=== PATIENT | male | born 1955 | race Caucasian/White ===

== ENCOUNTER 2016-06-13 11:45 | Emergency (ER) | payer MEDICARE ==
[~2016-06-13] VITALS: Ht 172.7 cm; Wt 132.0 kg
[2016-06-13 11:47] VITALS: BP 140/75; PULSE 64; RESP 20; TEMP 97.8; O2SAT 98
--- NOTE | 2016-06-13 11:58 | PD ---
HPI Chief Complaint: Abnormal Results Time Seen by Provider: 11:58 Travel History International Travel<30 days: No Contact w/Intl Traveler<30days: No Traveled to known affect area: No History of Present Illness HPI 61-year-old male with history of A. fib, on Coumadin, currently vacationing here in [place], presents to emergency department with an order for INR to be drawn. Patient states he did not know where else to go. Does not know of any local outpatient labs. States that he feels great and just needs his lab work. PFSH Past Medical History Hx Anticoagulant Therapy: Yes Atrial Fibrillation: Yes Cardiovascular Problems: Yes Social History Alcohol Use: No Tobacco Use: No Substance Use: No Allergies-Medications (Allergen,Severity, Reaction): Coded Allergies: Plavix (Verified Allergy, Severe, Rash, 06/13/16) Reported Meds & Prescriptions Reported Meds & Active Scripts Active Reported Coumadin (Warfarin) 5 Mg Tab 5 Mg PO DAILY Review of Systems Except as stated in HPI: all other systems reviewed are Neg Physical Exam Narrative GENERAL: Well-nourished male patient, ambulatory in no acute distress SKIN: Warm and dry. HEAD: Atraumatic. Normocephalic. EYES: Pupils equal and round. No scleral icterus. No injection or drainage. ENT: No nasal bleeding or discharge. Mucous membranes pink and moist. NECK: Trachea midline. No JVD. CARDIOVASCULAR: Regular rate and rhythm. No murmur appreciated. RESPIRATORY: No accessory muscle use. Clear to auscultation. Breath sounds equal bilaterally. GASTROINTESTINAL: Abdomen soft, non-tender, nondistended. Hepatic and splenic margins not palpable. MUSCULOSKELETAL: No obvious deformities. No clubbing. No cyanosis. No edema. NEUROLOGICAL: Awake and alert. No obvious cranial nerve deficits. Motor grossly within normal limits. Normal speech. PSYCHIATRIC: Appropriate mood and affect; insight and judgment normal. Data Data Last Documented VS Vital Signs Date Time Temp Pulse Resp B/P Pulse Ox O2 Delivery O2 Flow Rate FiO2 06/13/16 12:58 87 20 135/68 99 06/13/16 11:47 97.8 Room Air Orders Prothrombin Time / Inr (Pt) (06/13/16 11:53) Labs Laboratory Tests Test 06/13/16 12:00 Prothrombin Time 27.0 SEC Prothromb Time International 2.4 RATIO Ratio MDM Medical Decision Making Medical Screen Exam Complete: Yes Emergency Medical Condition: Yes Medical Record Reviewed: Yes Differential Diagnosis Subtherapeutic INR versus therapeutic INR versus hypercoagulable state versus hypocoagulable state Narrative Course 61-year-old male presents to emergency department for his INR to be checked. Patient appears without distress. INR is drawn. Results 2.4. This is faxed to the patient's primary care provider by Carmen Murphy RN. Patient is discharged at this time. Diagnosis Primary Impression: Anticoagulation goal of INR 2 to 3 Referrals: Primary Care Physician Patient Instructions: General Instructions, Normal Exam (ED) Additional Instructions: Follow up with Primary care provider Return to ED with acute worsening of symptoms Med/Other Pt SpecificInfo: No Change to Meds Disposition: 01 DISCHARGE HOME Condition: Stable Dahiana Douglas Jun 13, 2016 11:58
[2016-06-13 12:40] LABS: INTERNATIONAL NORMALIZED RATIO 2.4 RATIO
[2016-06-13 12:58] VITALS: BP 135/68
[2016-06-13] MEDS ORDERED: COUM5TAB PO (13:00)
== END 2016-06-13 13:03 | disposition home or self-care (01) ==
LOC: NETRI 11:45
DX: I48.91 Unspecified atrial fibrillation (principal); Z79.01 Long term (current) use of anticoagulants
CPT/HCPCS: 85610; 99283

== ENCOUNTER 2016-08-11 19:51 | Inpatient (IN) | payer MEDICARE ==
[~2016-08-11 19:51] MED LIST: COUM5TAB PO
[2016-08-11 19:52] VITALS: BP 166/81; PULSE 112; RESP 18; TEMP 98; O2SAT 96
[2016-08-11] MEDS ORDERED: ATEN100T PO (20:07)
[2016-08-11 20:11] VITALS: RESP 18; O2SAT 97
[2016-08-11] MEDS ORDERED: DILTIAZEM INJ 125 MG in SODIUM CHLORIDE 0.9% INJ 100 ML IV SCH (20:15)
[2016-08-11] MEDS ORDERED: SODIUM CHLOR 0.9% 1000 ML INJ 1,000 ML IV SCH (20:15)
[2016-08-11 20:16] LABS: AUTOMATED NEUTROPHIL # 6.1 TH/MM3 (1.8-7.7); BASOPHIL # 0.1 TH/MM3 (0-0.2); BASOPHIL % 0.7 % (0.0-2.0); EOSINOPHIL # 0.3 TH/MM3 (0-0.4); EOSINOPHIL % 2.9 % (0.0-4.0); HEMATOCRIT 38.7 % (39.0-51.0); HEMO FLAGS DIFF FINAL; LYMPH % 32.2 % (9.0-44.0); LYMPHOCYTE # 3.7 TH/MM3 (1.0-4.8); MEAN CELL VOLUME 85.7 FL (80.0-100.0); MEAN CORPUSCULAR HGB CONC 33.8 % (32.0-36.0); MONO % 11.1 % (0.0-8.0); NEUT % 53.1 % (16.0-70.0); PLATELET COUNT 250 TH/MM3 (150-450); RED BLOOD COUNT 4.51 MIL/MM3 (4.50-5.90); RED CELL DISTRIBUTION WIDTH 14.6 % (11.6-17.2); WHITE BLOOD COUNT 11.4 TH/MM3 (4.0-11.0)
--- NOTE | 2016-08-11 20:23 | PD ---
HPI Chief Complaint: Cardiac Complaint Time Seen by Provider: 20:00 Travel History International Travel<30 days: No Contact w/Intl Traveler<30days: No Traveled to known affect area: No History of Present Illness HPI 61-year-old male complains of palpitation and discharge from his AICD. Patient has history hypertension, diabetes, dyslipidemia. Patient has history of arrhythmia and on Coumadin and has AICD in place. Patient does not know what type of arrhythmia that he has. Patient has physician from outside the state. Patient does not have a local physician. Patient is on atenolol, Lexapro, potassium, Lasix, Lipitor, Pepcid, Coumadin and metformin. Patient states that his AICD discharged 10 times for the past 2 hours. Patient started having palpitation this evening and started having AICD discharge several time. EMS was called. Patient was found to be in atrial fibrillation with RVR. AICD with discharge 4 times during the time EMS was there. Patient was running between atrial fibrillation with RVR, short run of SVT and short runs of V. tach. The AICD was noted to be discharged during V. tach. Patient denies any chest pain or shortness of breath. Patient was given Cardizem 20 mg IV and lidocaine [address] to the ED. PFSH Past Medical History Hx Anticoagulant Therapy: Yes Atrial Fibrillation: Yes Cardiovascular Problems: Yes Social History Alcohol Use: No Tobacco Use: No Substance Use: No Allergies-Medications (Allergen,Severity, Reaction): Coded Allergies: Plavix (Verified Allergy, Severe, Rash, 06/13/16) Lisinopril (Verified Allergy, Intermediate, 08/11/16) Niacin (Verified Allergy, Intermediate, 08/11/16) Reported Meds & Prescriptions Reported Meds & Active Scripts Active Reported Metformin (Metformin HCl) 500 Mg Tab 500 Mg PO BIDPC With meals Atenolol 100 Mg Tab 100 Mg PO DAILY Coumadin (Warfarin) 5 Mg Tab 5 Mg PO DAILY Review of Systems General / Constitutional: No: Fever Eyes: No: Visual changes HENT: No: Headaches Cardiovascular: Positive: Palpitations, No: Chest Pain or Discomfort Respiratory: No: Shortness of Breath Gastrointestinal: No: Abdominal Pain Genitourinary: No: Dysuria Musculoskeletal: No: Pain Skin: No Rash Neurologic: No: Weakness Psychiatric: No: Depression Endocrine: No: Polydipsia Hematologic/Lymphatic: No: Easy Bruising Physical Exam Narrative GENERAL: Well-nourished, well-developed patient. SKIN: Warm and dry. HEAD: Normocephalic. EYES: No scleral icterus. No injection or drainage. NECK: Supple, trachea midline. No JVD or lymphadenopathy. CARDIOVASCULAR: Mild tachycardia rate and rhythm without murmurs, gallops, or rubs. RESPIRATORY: Breath sounds equal bilaterally. No accessory muscle use. GASTROINTESTINAL: Abdomen soft, non-tender, nondistended. MUSCULOSKELETAL: No cyanosis, or edema. BACK: Nontender without obvious deformity. No CVA tenderness. Neurologic exam normal. Data Data Last Documented VS Vital Signs Date Time Temp Pulse Resp B/P Pulse Ox O2 Delivery O2 Flow Rate FiO2 08/11/16 21:18 103 18 142/66 99 Nasal Cannula 2 08/11/16 19:52 98.0 Orders Electrocardiogram (08/11/16 20:01) Complete Blood Count With Diff (08/11/16 20:01) Comprehensive Metabolic Panel (08/11/16 20:01) Creatine Kinase (Cpk) (08/11/16 20:01) Troponin I (08/11/16 20:01) B-Type Natriuretic Peptide (08/11/16 20:01) Prothrombin Time / Inr (Pt) (08/11/16 20:01) Act Partial Throm Time (Ptt) (08/11/16 20:01) Thyroid Stimulating Hormone (08/11/16 20:01) Chest, Single Ap (08/11/16 20:01) Iv Access Insert/Monitor (08/11/16 20:01) Ecg Monitoring (08/11/16 20:01) Oximetry (08/11/16 20:01) Sodium Chlor 0.9% 1000 Ml Inj (Ns 1000 M (08/11/16 20:15) Diltiazem Inj (Cardizem Inj) (08/11/16 20:15) Echo 2d Comp W/Dopp(Routine) (08/12/16 09:00) Consult Cardiology (08/11/16 ) Admit Order (Ed Use Only) (08/11/16 21:27) Potassium Chlor 20 Meq Premix (Kcl 20 Me (08/11/16 21:30) Potassium Chloride (Kcl) (08/11/16 21:30) Labs Laboratory Tests Test 08/11/16 20:00 White Blood Count 11.4 TH/MM3 Red Blood Count 4.51 MIL/MM3 Hemoglobin 13.1 GM/DL Hematocrit 38.7 % Mean Corpuscular Volume 85.7 FL Mean Corpuscular Hemoglobin 29.0 PG Mean Corpuscular Hemoglobin 33.8 % Concent Red Cell Distribution Width 14.6 % Platelet Count 250 TH/MM3 Mean Platelet Volume 8.6 FL Neutrophils (%) (Auto) 53.1 % Lymphocytes (%) (Auto) 32.2 % Monocytes (%) (Auto) 11.1 % Eosinophils (%) (Auto) 2.9 % Basophils (%) (Auto) 0.7 % Neutrophils # (Auto) 6.1 TH/MM3 Lymphocytes # (Auto) 3.7 TH/MM3 Monocytes # (Auto) 1.3 TH/MM3 Eosinophils # (Auto) 0.3 TH/MM3 Basophils # (Auto) 0.1 TH/MM3 CBC Comment DIFF FINAL Differential Comment Prothrombin Time 30.8 SEC Prothromb Time International 2.7 RATIO Ratio Activated Partial 37.1 SEC Thromboplast Time Sodium Level 139 MEQ/L Potassium Level 3.0 MEQ/L Chloride Level 102 MEQ/L Carbon Dioxide Level 26.5 MEQ/L Anion Gap 11 MEQ/L Blood Urea Nitrogen 12 MG/DL Creatinine 1.13 MG/DL Estimat Glomerular Filtration 66 ML/MIN Rate Random Glucose 113 MG/DL Calcium Level 8.4 MG/DL Total Bilirubin 0.4 MG/DL Aspartate Amino Transf 51 U/L (AST/SGOT) Alanine Aminotransferase 60 U/L (ALT/SGPT) Alkaline Phosphatase 79 U/L Total Creatine Kinase 173 U/L Troponin I 0.31 NG/ML B-Type Natriuretic Peptide 23 PG/ML Total Protein 7.6 GM/DL Albumin 3.2 GM/DL Thyroid Stimulating Hormone 1.560 uIU/ML [address] [place] [address] Medical Decision Making Medical Screen Exam Complete: Yes Emergency Medical Condition: Yes Interpretation(s) 21:20 PM. EKG shows sinus tachycardia rate 108 with occasional PVCs. Nonspecific ST-T wave change. Chest x-ray shows no acute consolidation. CBC within normal limit. Potassium 3.0. Calcium 8.4. Troponin 0.31. INR 2.7. Differential Diagnosis Differential diagnosis including atrial fibrillation with RVR, ventricular tachycardia, SVT. Narrative Course 61-year-old male with history of arrhythmia and has AICD placement. A[employer] company [employer]. the patient was given Cardizem and lidocaine 1 mg IV bolus prior to arrival. Cardizem drip started. Dr. Carvajal coin machine collector was consulted. [employer] reps will be consulted for interrogation of the AICD. KCl 40 mEq by mouth given. KCl 20 mEq IV given. Diagnosis Primary Impression: Atrial fibrillation with RVR Additional Impressions: AICD discharge Elevated troponin Hypokalemia Darwin Delacruz MD Aug 11, 2016 20:23
[2016-08-11 20:27] LABS: APTT (PATIENT) 37.1 SEC (24.3-30.1); INTERNATIONAL NORMALIZED RATIO 2.7 RATIO; PROTHROMBIN TIME - PATIENT 30.8 SEC (9.8-11.6)
--- NOTE | 2016-08-11 20:30 | RADRPT ---
EXAM DATE/TIME: 08/11/2016 20:19 [facility] COMPARISON: No previous studies available for comparison. INDICATIONS : Palpitations. Patient states their d-fib went off tonight. MEDICAL HISTORY : None. SURGICAL HISTORY : D-fib. ENCOUNTER: Initial ACUITY: 1 day PAIN SCORE: 0/10 LOCATION: chest FINDINGS: Pacer lead overlies right ventricle. Heart size within normal limits. Minimal basal atelectasis. No f ocal consolidation or effusion. No pneumothorax. CONCLUSION: 1. Minimal basal atelectasis. No focal consolidation or effusion. No pneumothorax. Brandon Matias MD on August 11, 2016 at 20:29 Board Certified Radiologist. This report was verified electronically.
[2016-08-11] MEDS ORDERED: METF500T PO (20:31)
[2016-08-11 20:39] VITALS: BP 157/70; PULSE 103; RESP 18; O2SAT 97
[2016-08-11 20:43] LABS: ANION GAP 11 MEQ/L (5-15); AST (GOT) 51 U/L (15-37); BICARBONATE 26.5 MEQ/L (21.0-32.0); BLOOD UREA NITROGEN 12 MG/DL (7-18); CHLORIDE 102 MEQ/L (98-107); GLOMERULAR FILTRATION RATE 66 ML/MIN (>89); SODIUM (NA) 139 MEQ/L (136-145)
[2016-08-11 20:56] LABS: ALKALINE PHOSPHATASE 79 U/L (45-117); ALT (GPT) 60 U/L (12-78); CREATINE KINASE 173 U/L (39-308); TOTAL BILIRUBIN ADULT 0.4 MG/DL (0.2-1.0)
--- NOTE | 2016-08-11 21:16 | MB ---
cc: SOLANGE CARVAJAL MD DATE OF CONSULTATION 08/11/16 HISTORY OF PRESENT ILLNESS Mr. Domingo is a 61 year old white male with a history of ventricular arrhythmias and ICD placement 12 years ago. He has had his [employer] ICD changed once. He presented with fast arrhythmias that were diagnosed as atrial fibrillation with rapid ventricular response and ventricular tachycardia resulting in four shocks. The patient states that he had 10 shocks in two hours. He has not had any angina or heart failure symptoms. He was given IV Diltiazem and also Lidocaine. He is currently in sinus tachycardia. PAST MEDICAL HISTORY 1. Atrial fibrillation 2. Ventricular arrhythmias. 3. [employer] ICD placement. 4. History of hypertension No history of coronary artery disease or cerebrovascular accident. MEDICATIONS 1. Atenolol 100 mg a day 2. Metformin 3. Left-sided ALLERGIES PLAVIX SOCIAL HISTORY The patient does not smoke. He does not drink alcohol. He is visiting from [place]. FAMILY HISTORY Negative for heart disease. REVIEW OF SYSTEMS Otherwise negative. PHYSICAL EXAMINATION VITAL SIGNS: Blood pressure 166/81, pulse 105 and regular. HEENT: Negative, 2+ carotid upstrokes, no bruits. LUNGS: Clear. HEART: Regular with no murmurs, rubs or gallops ABDOMEN: Soft, no bruits. EXTREMITIES: Without edema, 2+ distal pulses. NEUROLOGIC: Grossly intact. There is healed site at the left upper chest with stable defibrillator pocket. CARDIOLOGY STUDIES Electrocardiogram was reviewed and showed mild sinus tachycardia, normal axis and intervals, nonspecific ST-T changes. LABORATORY DATA Hemoglobin 13.1. The rest of the labs are pending. DIAGNOSES 1. ICD shock. 2. Atrial fibrillation with rapid ventricular response 3. Wide complex tachycardia 4. Status post [employer] ICD placement DISPOSITION Mr. Domingo will continue his current program with atenolol. We will continue IV Diltiazem in the meantime. We may increase the dose of beta andreas or calcium channel andreas if necessary. He will be admitted to the Intensive Care Unit. We will obtain echocardiograms tomorrow to evaluate his left ventricular function. We will have his ICD interrogated tonight. I will follow him for cardiology during his hospitalization. Solange Carvajal MD [place]/ /8:37 PM /9:06 PM DANITZA
[2016-08-11 21:18] VITALS: BP 142/66; PULSE 103; RESP 18; O2SAT 99
[2016-08-11] MEDS ORDERED: POTASSIUM CHLOR 20 MEQ PREMIX 100 ML IV ONE (21:30)
[2016-08-11] MEDS ORDERED: POTASSIUM CHLORIDE 20 MEQ CONTROLLED RELEASE TAB PO ONE (21:30)
[2016-08-11] MEDS ORDERED: CHLORHEXIDINE GLUCONATE 2 % 1 PACK (2 CLOTHS) TOP PRN (22:00)
[2016-08-11] MEDS ORDERED: HEPARIN SODIUM - SQ 10,000 UNITS/ML VIAL SQ SCH (22:00)
[2016-08-11] MEDS ORDERED: ACETAMINOPHEN 325 MG TAB PO PRN (22:00)
[2016-08-11] MEDS ORDERED: RESP: ALBUTEROL 2.5 MG/IPRATROPIUM 0.5 MG NEB (PRN) INH (22:00)
[2016-08-11] MEDS ORDERED: SODIUM CHLORIDE 0.9% FLUSH 10 ML FLUSH PRN (22:00)
[2016-08-11] MEDS ORDERED: oxyCODONE/ACETAMINOPHEN 5 MG/325 MG TAB PO PRN (22:00)
[2016-08-11] MEDS ORDERED: ZOLPIDEM TARTRATE 5 MG TAB PO PRN (22:00)
[2016-08-11] MEDS ORDERED: MORPHINE SULFATE 4 MG/ML INJ IV PRN (22:00)
[2016-08-11] MEDS ORDERED: MISCELLANEOUS NURSING INFORMATION XX SCH (22:00)
[2016-08-11] MEDS ORDERED: LIPI40TA PO (22:03)
[2016-08-11] MEDS ORDERED: POTA10TA2 PO (22:03)
[2016-08-11] MEDS ORDERED: FURO1TAB60 PO (22:03)
[2016-08-11] MEDS ORDERED: LEXA10TA PO (22:03)
--- NOTE | 2016-08-11 22:18 | HHI.HP ---
HPI Service Critical Care Medicine Primary Care Physician Non-Staff Admission Diagnosis atrial fibrillation with RVR. AICD discharge. Elevated troponin. Diagnosis: Travel History International Travel<30 Days: No Contact w/Intl Traveler <30 Da: No Traveled to Known Affected Are: No History of Present Illness 61-year-old male with history of atrial fibrillation ventricular arrhythmia status post ICD placement ([employer]) complains of palpitation and multiple discharges from his ICD. Patient has also history hypertension, diabetes, dyslipidemia. Patient chronically anticoagulated due to atrial fibrillation and ventricular arrhythmias. Patient states that his AICD discharged 10 times for the past 2 hours. Patient denies any chest pain or shortness of breath. Patient was given Cardizem 20 mg IV and lidocaine [address] to the ED. he was evaluated by ornamental machine operator in emergency department and his heart rate is currently well controlled. Review of Systems Constitutional: DENIES: Diaphoretic episodes, Fatigue, Fever, Weight gain, Weight loss, Chills, Dizziness, Change in appetite, Night Sweats Endocrine: DENIES: Heat/cold intolerance, Polydipsia, Polyuria, Polyphagia Eyes: DENIES: Blurred vision, Diplopia, Eye inflammation, Eye pain, Vision loss , Photosensitivity, Double Vision Ears, nose, mouth, throat: DENIES: Tinnitus, Hearing loss, Vertigo, Nasal discharge, Oral lesions, Throat pain, Hoarseness, Ear Pain, Running Nose, Epistaxis, Sinus Pain, Toothache, Odynophagia Respiratory: DENIES: Apneas, Cough, Snoring, Wheezing, Hemoptysis, Sputum production, Shortness of breath Cardiovascular: DENIES: Chest pain, Palpitations, Syncope, Dyspnea on Exertion , PND, Lower Extremity Edema, Orthopnea, Claudication Gastrointestinal: DENIES: Abdominal pain, Black stools, Bloody stools, Constipation, Diarrhea, Nausea, Vomiting, Difficulty Swallowing, Anorexia Genitourinary: DENIES: Sexual dysfunction, Urinary frequency, Urinary incontinence, Urgency, Hematuria, Dysuria, Nocturia, Penile Discharge, Testicular Pain, Testicular Swelling Musculoskeletal: DENIES: Joint pain, Muscle aches, Stiffness, Joint Swelling, Back pain, Neck pain Integumentary: DENIES: Abnormal pigmentation, Nail changes, Pruritus, Rash Hematologic/lymphatic: DENIES: Bruising, Lymphadenopathy Neurologic: DENIES: Abnormal gait, Headache, Localized weakness, Paresthesias, Seizures, Speech Problems, Tremor, Poor Balance Psychiatric: DENIES: Anxiety, Confusion, Mood changes, Depression, Hallucinations, Agitation, Suicidal Ideation, Homicidal Ideation, Delusions Past Family Social History Allergies: Coded Allergies: Plavix (Verified Allergy, Severe, Rash, 06/13/16) Lisinopril (Verified Allergy, Intermediate, 08/11/16) Niacin (Verified Allergy, Intermediate, 08/11/16) Past Medical History Atrial fibrillation Ventricular arrhythmias [employer] ICD in place Hypertension Diabetes mellitus Chronic anticoagulation Past Surgical History ICD placement Reported Medications Reported Meds & Active Scripts Active Reported Lipitor (Atorvastatin Calcium) 40 Mg Tab 40 Mg PO HS Lasix (Furosemide) 40 Mg Tab 40 Mg PO BID Potassium Chloride ER (Potassium Chloride) 10 Meq Tab 10 Meq PO DAILY Lexapro (Escitalopram Oxalate) 10 Mg Tab 10 Mg PO DAILY Metformin (Metformin HCl) 500 Mg Tab 500 Mg PO BIDPC With meals Atenolol 100 Mg Tab 100 Mg PO DAILY Coumadin (Warfarin) 5 Mg Tab 5 Mg PO DAILY Active Ordered Medications Current Medications Medications (Trade) Dose Ordered Sig/Maggy Route PRN Reason Start Time Stop Time Status Last Admin Dose Admin Diltiazem HCl 125 mg/Sodium Chloride 125 ml @ 0 mls/hr TITRATE IV 08/11/16 20:15 08/11/16 20:49 Sodium Chloride (NS 1000 ml Inj) 1,000 ml @ 84 mls/hr [id number] IV 08/11/16 22:00 08/11/16 22:41 Sodium Chloride (NS Flush) 2 ml UNSCH PRN .XX FLUSH AFTER USING IV ACCESS 08/11/16 22:00 Sodium Chloride (NS Flush) 2 ml BID .XX 08/12/16 09:00 Acetaminophen (Tylenol) 650 mg Q6H PRN PO FEVER >101F 08/11/16 22:00 Oxycodone/ Acetaminophen (Percocet 5-325 Mg) 1 tab Q4H PRN PO PAIN SCALE 1 TO 5 08/11/16 22:00 Morphine Sulfate (Morphine Inj) 2 mg Q2H PRN IV SEE LABEL COMMENTS 08/11/16 22:00 Docusate Sodium (Colace) 100 mg BID PO 08/12/16 09:00 Zolpidem Tartrate (Ambien) 5 mg HS PRN PO INSOMNIA 08/11/16 22:00 Miscellaneous Information 1 [id number] XX 08/11/16 22:00 Chlorhexidine Gluconate (Chlorhexidine 2% Cloth) 3 pack Taper DAILY@04 TOP 08/12/16 04:00 08/08/17 03:59 Chlorhexidine Gluconate (Chlorhexidine 2% Cloth) 3 pack UNSCH PRN TOP HYGIENIC CARE 08/11/16 22:00 Atenolol (Tenormin) 100 mg DAILY PO 08/12/16 09:00 Atorvastatin Calcium (Lipitor) 40 mg HS PO 08/12/16 21:00 Escitalopram Oxalate (Lexapro) 10 mg DAILY PO 08/12/16 09:00 Furosemide (Lasix) 40 mg BID@18 PO 08/12/16 09:00 Potassium Chloride (KCl) 10 meq DAILY PO 08/12/16 09:00 Warfarin Sodium (Coumadin) 5 mg DAILY@16 PO 08/12/16 16:00 Dextrose (D50w (Vial) Inj) 25 ml UNSCH PRN IV PUSH HYPOGLYCEMIA-SEE COMMENTS 08/11/16 22:45 Glucagon 1 mg 1 mg UNSCH PRN OTHER HYPOGLYCEMIA-SEE COMMENTS 08/11/16 22:45 Potassium Chloride 100 ml @ 50 mls/hr Q2H PRN IV For Potassium 2.8 - 3.2 mEq/L 08/11/16 22:45 Potassium Chloride 100 ml @ 50 mls/hr Q2H PRN IV For Potassium 2.8 - 3.2 mEq/L 08/11/16 22:45 Potassium Chloride 100 ml @ 25 mls/hr UNSCH PRN IV For Potassium 3.3 - 3.5 mEq/L 08/11/16 22:45 Potassium Chloride 100 ml @ 50 mls/hr Q2H PRN IV For Potassium 3.3 - 3.5 mEq/L 08/11/16 22:45 Magnesium Sulfate/ Sodium Chloride (Magnesium Sulfate Inj/NS Inj) 100 ml @ 50 mls/hr UNSCH PRN IV For Magnesium 0.9 - 1.1 mg/dL 08/11/16 22:45 Magnesium Oxide 800 mg 800 mg UNSCH PRN PO For Magnesium 1.2 - 1.6 mg/dL 08/11/16 22:45 Magnesium Sulfate/ Sodium Chloride (Magnesium Sulfate Inj/NS Inj) 100 ml @ 50 mls/hr UNSCH PRN IV For Magnesium 1.2 - 1.6 mg/dL 08/11/16 22:45 Potassium Phosphate 2000 mg 2,000 mg Q4H PRN PO For Phosphorus < 2.5 mg/dL 08/11/16 22:45 Sodium Phosphate/ Sodium Chloride (Sodium Phosphate Inj/NS 250 ml Inj) 250 ml @ 42 mls/hr UNSCH PRN IV For Phosphorus < 2.5 mg/dL 08/11/16 22:45 Potassium Phosphate 2000 mg 2,000 mg UNSCH PRN PO/TUBE SEE LABEL COMMENTS 08/11/16 22:45 Potassium Phosphate/Sodium Chloride (Potassium Phosphate Inj/NS 250 ml Inj) 260 ml @ 42 mls/hr UNSCH PRN IV SEE LABEL COMMENTS 08/11/16 22:45 Family History Noncontributory Social History Negative Physical Exam Vital Signs Vital Signs Date Time Temp Pulse Resp B/P Pulse Ox O2 Delivery O2 Flow Rate FiO2 08/11/16 21:18 103 18 142/66 99 Nasal Cannula 2 08/11/16 20:39 103 18 157/70 97 Nasal Cannula 2 08/11/16 20:11 18 97 Nasal Cannula 08/11/16 20:00 115 18 Nasal Cannula 3 08/11/16 19:52 98.0 112 18 166/81 96 Physical Exam GENERAL: Morbidly obese middle-aged male in no acute distress. SKIN: Warm and dry. HEAD: Normocephalic. EYES: No scleral icterus. No injection or drainage. NECK: Supple, trachea midline. No JVD or lymphadenopathy. CARDIOVASCULAR: Regular rate and rhythm without murmurs, gallops, or rubs. RESPIRATORY: Breath sounds equal bilaterally. No accessory muscle use. GASTROINTESTINAL: Abdomen soft, non-tender, nondistended. MUSCULOSKELETAL: No cyanosis, or edema. BACK: Nontender without obvious deformity. No CVA tenderness. EXTREMITIES: No clubbing cyanosis or edema Laboratory Laboratory Tests Test 08/11/16 20:00 White Blood Count 11.4 Red Blood Count 4.51 Hemoglobin 13.1 Hematocrit 38.7 Mean Corpuscular Volume 85.7 Mean Corpuscular Hemoglobin 29.0 Mean Corpuscular Hemoglobin 33.8 Concent Red Cell Distribution Width 14.6 Platelet Count 250 Mean Platelet Volume 8.6 Neutrophils (%) (Auto) 53.1 Lymphocytes (%) (Auto) 32.2 Monocytes (%) (Auto) 11.1 Eosinophils (%) (Auto) 2.9 Basophils (%) (Auto) 0.7 Neutrophils # (Auto) 6.1 Lymphocytes # (Auto) 3.7 Monocytes # (Auto) 1.3 Eosinophils # (Auto) 0.3 Basophils # (Auto) 0.1 CBC Comment DIFF FINAL Differential Comment Prothrombin Time 30.8 Prothromb Time International 2.7 Ratio Activated Partial 37.1 Thromboplast Time Sodium Level 139 Potassium Level 3.0 Chloride Level 102 Carbon Dioxide Level 26.5 Anion Gap 11 Blood Urea Nitrogen 12 Creatinine 1.13 Estimat Glomerular Filtration 66 Rate Random Glucose 113 Calcium Level 8.4 Total Bilirubin 0.4 Aspartate Amino Transf 51 (AST/SGOT) Alanine Aminotransferase 60 (ALT/SGPT) Alkaline Phosphatase 79 Total Creatine Kinase 173 Troponin I 0.31 B-Type Natriuretic Peptide 23 Total Protein 7.6 Albumin 3.2 Thyroid Stimulating Hormone 1.560 3rd Gen Result Diagram: 08/11/16199908/11/161999 Imaging Last 24 hours Impressions Chest X-Ray 08/11/162000 Signed Impressions: Service Date/Time: Thursday, August 11, 2016 20:19 - CONCLUSION: 1. Minimal basal atelectasis. No focal consolidation or effusion. No pneumothorax. Brandon Matias MD Assessment and Plan Problem List: (1) Anticoagulation goal of INR 2 to 3 ICD Code: Z51.81 Status: Acute (2) Atrial fibrillation with RVR ICD Code: I48.91 Status: Acute (3) AICD discharge ICD Code: Z45.02 Status: Acute (4) Hypokalemia ICD Code: E87.6 Status: Acute (5) Elevated troponin ICD Code: R74.8 Status: Acute Assessment and Plan Arrhythmias - Multiple discharges from ICD - Interrogated the device - Management per cardiology - Continue atenolol and calcium channel andreas - Telemetry monitoring in the ICU Diabetes - Hold metformin while in the ICU - Insulin sliding scale Hypertension - Continue atenolol Chronic atrial fibrillation - Rate controlled - Continue beta andreas - Continue Coumadin Hypokalemia - Replacement per ICU routine DVT GI prophylaxis - Coumadin 1999 ADA diet Critical Care: The total critical care time was 35 minutes. Time to perform other separately billable procedures was not included in the critical care time. Adelfo Dahl MD Aug 11, 2016 22:18
[2016-08-11 22:31] VITALS: BP 144/74; PULSE 98; RESP 18; O2SAT 98
[2016-08-11] MEDS: SODIUM CHLOR 0.9% 1000 ML INJ 1,000 ML IV SCH (22:41)
[2016-08-11] MEDS ORDERED: MAGNESIUM SULFATE INJ 4 GM in SODIUM CHLORIDE 0.9% INJ 92 ML IV PRN (22:45)
[2016-08-11] MEDS ORDERED: MAGNESIUM OXIDE 400 MG TAB PO PRN (22:45)
[2016-08-11] MEDS ORDERED: POTASSIUM PHOSPHATE MONOBASIC 500 MG TAB PO/TUBE PRN (22:45)
[2016-08-11] MEDS ORDERED: SODIUM PHOSPHATE INJ 30 MMOL in SODIUM CHLOR 0.9% 250 ML INJ 240 ML IV PRN (22:45)
[2016-08-11] MEDS ORDERED: DEXTROSE 50% IN WATER 50 ML VIAL(D50) IV PUSH PRN (22:45)
[2016-08-11] MEDS ORDERED: MAGNESIUM SULFATE INJ 2 GM in SODIUM CHLORIDE 0.9% INJ 96 ML IV PRN (22:45)
[2016-08-11] MEDS ORDERED: POTASSIUM CHLOR 40 MEQ PREMIX 100 ML IV PRN ×2 (22:45)
[2016-08-11] MEDS ORDERED: GLUCAGON 1 MG/ML VIAL OTHER PRN (22:45)
[2016-08-11] MEDS ORDERED: POTASSIUM PHOSPHATE MONOBASIC 500 MG TAB PO PRN (22:45)
[2016-08-11] MEDS ORDERED: POTASSIUM PHOSPHATE INJ 30 MMOL in SODIUM CHLOR 0.9% 250 ML INJ 250 ML IV PRN (22:45)
[2016-08-11] MEDS ORDERED: POTASSIUM CHLOR 20 MEQ PREMIX 100 ML IV PRN ×2 (22:45)
[2016-08-12] VITALS (12 sets, daily range): BP systolic 109–139; BP diastolic 60–76; PULSE 64–88; RESP 15–38; TEMP 97.9–98.5; O2SAT 93–96
[2016-08-12] MEDS: CHLORHEXIDINE GLUCONATE 2 % 1 PACK (2 CLOTHS) TOP SCH (04:00)
[2016-08-12 04:11] LABS: ANION GAP 9 MEQ/L (5-15); AST (GOT) 50 U/L (15-37); BICARBONATE 27.4 MEQ/L (21.0-32.0); BLOOD UREA NITROGEN 11 MG/DL (7-18); CHLORIDE 105 MEQ/L (98-107); GLOMERULAR FILTRATION RATE 87 ML/MIN (>89); MAGNESIUM 1.8 MG/DL (1.5-2.5); POTASSIUM 3.8 MEQ/L (3.5-5.1); SODIUM (NA) 141 MEQ/L (136-145)
[2016-08-12 04:13] LABS: AUTOMATED NEUTROPHIL # 5.2 TH/MM3 (1.8-7.7); BASOPHIL % 0.5 % (0.0-2.0); EOSINOPHIL # 0.1 TH/MM3 (0-0.4); EOSINOPHIL % 1.8 % (0.0-4.0); HEMATOCRIT 37.9 % (39.0-51.0); HEMO FLAGS DIFF FINAL; LYMPH % 25.4 % (9.0-44.0); MEAN CELL VOLUME 87.8 FL (80.0-100.0); MEAN CORPUSCULAR HEMOGLOBIN 29.2 PG (27.0-34.0); MEAN CORPUSCULAR HGB CONC 33.2 % (32.0-36.0); MONO % 7.4 % (0.0-8.0); NEUT % 64.9 % (16.0-70.0); PLATELET COUNT 212 TH/MM3 (150-450); RED BLOOD COUNT 4.32 MIL/MM3 (4.50-5.90); RED CELL DISTRIBUTION WIDTH 14.8 % (11.6-17.2)
[2016-08-12 04:14] LABS: ALKALINE PHOSPHATASE 72 U/L (45-117); ALT (GPT) 54 U/L (12-78); TOTAL BILIRUBIN ADULT 0.5 MG/DL (0.2-1.0)
[2016-08-12 04:23] LABS: INTERNATIONAL NORMALIZED RATIO 2.3 RATIO; PROTHROMBIN TIME - PATIENT 26.8 SEC (9.8-11.6)
[2016-08-12] MEDS: INSULIN ASPART SUPPLEMENTAL SCALE SQ SCH ×4 (07:00→21:00)
[2016-08-12] MEDS ORDERED: ATENOLOL 100 MG TAB PO SCH (09:00)
[2016-08-12] MEDS: SODIUM CHLORIDE 0.9% FLUSH 10 ML FLUSH SCH ×2 (09:00→21:00)
[2016-08-12] MEDS: DOCUSATE SODIUM 100 MG CAP PO SCH ×2 (09:24→21:00)
[2016-08-12] MEDS: ESCITALOPRAM OXALATE 10 MG TAB PO SCH (09:24)
[2016-08-12] MEDS: POTASSIUM CHLORIDE 10 MEQ CONTROLLED RELEASE TAB PO SCH (09:25)
[2016-08-12] MEDS: FUROSEMIDE 40 MG TAB PO SCH ×2 (09:25→20:02)
[2016-08-12] MEDS: SODIUM CHLOR 0.9% 1000 ML INJ 1,000 ML IV SCH ×2 (09:55→21:50)
--- NOTE | 2016-08-12 14:52 | EKG ---
Date Performed: 08/11/2016 Time Performed: 19:57:01 PTAGE: 61 years EKG: SINUS TACHYCARDIA WITH OCCASIONAL VENTRICULAR PREMATURE COMPLEXES LOW QRS VOLTAGE IN PRECOR DIAL LEADS NONSPECIFIC ST & T-WAVE ABNORMALITY ABNORMAL RHYTHM ECG NO PREVIOUS TRACING DOCTOR: Tommy Devine Interpretating Date/Time 08/12/2016 14:47:48
--- NOTE | 2016-08-12 17:57 | PD.CARD.PN ---
Subjective Subjective Remarks No CP or SOB, no recurrent AF Objective Medications Current Medications Medications (Trade) Dose Ordered Sig/Maggy Route Start Time Stop Time Status Last Admin (NS 1000 ml Inj) 1,000 ml @ 84 mls/hr [id number] IV 08/11/16 22:00 08/11/16 22:41 (NS Flush) 2 ml UNSCH PRN .XX 08/11/16 22:00 (NS Flush) 2 ml BID .XX 08/12/16 09:00 (Tylenol) 650 mg Q6H PRN PO 08/11/16 22:00 (Percocet 5-325 Mg) 1 tab Q4H PRN PO 08/11/16 22:00 (Morphine Inj) 2 mg Q2H PRN IV 08/11/16 22:00 (Colace) 100 mg BID PO 08/12/16 09:00 08/12/16 09:24 (Ambien) 5 mg HS PRN PO 08/11/16 22:00 Miscellaneous Information 1 Q361D XX 08/11/16 22:00 (Chlorhexidine 2% Cloth) 3 pack Taper DAILY@04 TOP 08/12/16 04:00 08/08/17 03:59 08/12/16 04:00 (Chlorhexidine 2% Cloth) 3 pack UNSCH PRN TOP 08/11/16 22:00 (Lipitor) 40 mg HS PO 08/12/16 21:00 (Lexapro) 10 mg DAILY PO 08/12/16 09:00 08/12/16 09:24 (Lasix) 40 mg BID@09,18 PO 08/12/16 09:00 08/12/16 09:25 (KCl) 10 meq DAILY PO 08/12/16 09:00 08/12/16 09:25 (Coumadin) 5 mg DAILY@16 PO 08/12/16 16:00 (D50w (Vial) Inj) 25 ml UNSCH PRN IV PUSH 08/11/16 22:45 Glucagon 1 mg 1 mg UNSCH PRN OTHER 08/11/16 22:45 Potassium Chloride 100 ml @ 50 mls/hr Q2H PRN IV 08/11/16 22:45 Potassium Chloride 100 ml @ 50 mls/hr Q2H PRN IV 08/11/16 22:45 Potassium Chloride 100 ml @ 25 mls/hr UNSCH PRN IV 3/25/17 22:45 Potassium Chloride 100 ml @ 50 mls/hr Q2H PRN IV 08/11/16 22:45 (Magnesium Sulfate Inj/NS Inj) 100 ml @ 50 mls/hr UNSCH PRN IV 08/11/16 22:45 Magnesium Oxide 800 mg 800 mg UNSCH PRN PO 08/11/16 22:45 (Magnesium Sulfate Inj/NS Inj) 100 ml @ 50 mls/hr UNSCH PRN IV 08/11/16 22:45 Potassium Phosphate 2000 mg 2,000 mg Q4H PRN PO 08/11/16 22:45 (Sodium Phosphate Inj/NS 250 ml Inj) 250 ml @ 42 mls/hr UNSCH PRN IV 08/11/16 22:45 Potassium Phosphate 2000 mg 2,000 mg UNSCH PRN PO/TUBE 08/11/16 22:45 (Potassium Phosphate Inj/NS 250 ml Inj) 260 ml @ 42 mls/hr UNSCH PRN IV 08/11/16 22:45 (Tenormin) 50 mg DAILY PO 08/13/16 09:00 Vital Signs / I&O Vital Signs Date Time Temp Pulse Resp B/P Pulse Ox O2 Delivery O2 Flow Rate FiO2 08/12/16 08:05 95 Nasal Cannula 2.00 08/12/16 08:00 97.9 78 19 123/76 95 08/12/16 06:00 75 15 122/63 94 08/12/16 06:00 75 08/12/16 05:00 77 18 121/68 94 08/12/16 04:00 79 08/12/16 04:00 98.5 79 18 119/67 94 08/12/16 03:00 77 18 119/66 94 08/12/16 02:00 88 38 139/76 94 08/12/16 02:00 88 08/12/16 01:00 79 24 109/63 95 08/12/16 00:00 82 08/12/16 00:00 98.3 82 25 109/60 96 08/12/16 00:00 82 08/11/16 22:31 98 18 144/74 98 Nasal Cannula 2 08/11/16 21:18 103 18 142/66 99 Nasal Cannula 2 08/11/16 20:39 103 18 157/70 97 Nasal Cannula 2 08/11/16 20:11 18 97 Nasal Cannula 3/25/17 20:00 115 18 Nasal Cannula 3 08/11/16 19:52 98.0 112 18 166/81 96 I/O 08/11/16 08/11/16 08/11/16 08/12/16 08/12/16 08/12/16 07:00 15:00 23:00 07:00 15:00 23:00 Intake Total 2828 ml Output Total 390 ml Balance 2438 ml Intake Oral 1440 ml IV Total 1388 ml Output Urine Total 390 ml Stool Total 0 ml Physical Exam GENERAL: In NAD SKIN: Warm and dry. HEAD: Normocephalic. EYES: No scleral icterus. No injection or drainage. NECK: Supple, trachea midline. No JVD or lymphadenopathy. CARDIOVASCULAR: Regular rate and rhythm without murmurs, gallops, or rubs. RESPIRATORY: Breath sounds equal bilaterally. No accessory muscle use. GASTROINTESTINAL: Abdomen soft, non-tender, nondistended. MUSCULOSKELETAL: No cyanosis, or edema. ICD site stable Laboratory Laboratory Tests Test 08/11/16 08/11/16 08/12/16 08/12/16 20:00 23:00 03:13 08:12 White Blood Count 11.4 TH/MM3 8.0 TH/MM3 Red Blood Count 4.51 MIL/MM3 4.32 MIL/MM3 Hemoglobin 13.1 GM/DL 12.6 GM/DL Hematocrit 38.7 % 37.9 % Mean Corpuscular Volume 85.7 FL 87.8 FL Mean Corpuscular Hemoglobin 29.0 PG 29.2 PG Mean Corpuscular Hemoglobin 33.8 % 33.2 % Concent Red Cell Distribution Width 14.6 % 14.8 % Platelet Count 250 TH/MM3 212 TH/MM3 Mean Platelet Volume 8.6 FL 8.9 FL Neutrophils (%) (Auto) 53.1 % 64.9 % Lymphocytes (%) (Auto) 32.2 % 25.4 % Monocytes (%) (Auto) 11.1 % 7.4 % Eosinophils (%) (Auto) 2.9 % 1.8 % Basophils (%) (Auto) 0.7 % 0.5 % Neutrophils # (Auto) 6.1 TH/MM3 5.2 TH/MM3 Lymphocytes # (Auto) 3.7 TH/MM3 2.0 TH/MM3 Monocytes # (Auto) 1.3 TH/MM3 0.6 TH/MM3 Eosinophils # (Auto) 0.3 TH/MM3 0.1 TH/MM3 Basophils # (Auto) 0.1 TH/MM3 0.0 TH/MM3 CBC Comment DIFF FINAL DIFF FINAL Differential Comment Prothrombin Time 30.8 SEC 26.8 SEC Prothromb Time International 2.7 RATIO 2.3 RATIO Ratio Activated Partial 37.1 SEC Thromboplast Time Sodium Level 139 MEQ/L 141 MEQ/L Potassium Level 3.0 MEQ/L 3.8 MEQ/L Chloride Level 102 MEQ/L 105 MEQ/L Carbon Dioxide Level 26.5 MEQ/L 27.4 MEQ/L Anion Gap 11 MEQ/L 9 MEQ/L Blood Urea Nitrogen 12 MG/DL 11 MG/DL Creatinine 1.13 MG/DL 0.89 MG/DL Estimat Glomerular Filtration 66 ML/MIN 87 ML/MIN Rate Random Glucose 113 MG/DL 170 MG/DL Calcium Level 8.4 MG/DL 8.7 MG/DL Total Bilirubin 0.4 MG/DL 0.5 MG/DL Aspartate Amino Transf 51 U/L 50 U/L (AST/SGOT) Alanine Aminotransferase 60 U/L 54 U/L (ALT/SGPT) Alkaline Phosphatase 79 U/L 72 U/L Total Creatine Kinase 173 U/L Troponin I 0.31 NG/ML 2.28 NG/ML 1.70 NG/ML B-Type Natriuretic Peptide 23 PG/ML Total Protein 7.6 GM/DL 7.4 GM/DL Albumin 3.2 GM/DL 3.1 GM/DL Thyroid Stimulating Hormone 1.560 uIU/ML 3rd Gen Nasal Screen MRSA (PCR) NEGATIVE Phosphorus Level 2.7 MG/DL 2.4 MG/DL Magnesium Level 1.8 MG/DL Imaging Last Impressions Chest X-Ray 08/11/162000 Signed Impressions: Service Date/Time: Thursday, August 11, 2016 20:19 - CONCLUSION: 1. Minimal basal atelectasis. No focal consolidation or effusion. No pneumothorax. Brandon Matias MD Assessment and Plan Problem List: (1) AICD discharge (2) Atrial fibrillation with RVR (3) Elevated troponin Assessment and Plan ICD (BSci) eval shows a fib only, no V arrhythmias. Back in SR. No angina or CHF symptoms. Troponin mildly elevated. Check echo. Start antiarrhythmic tx w sotalol. Monitor EKGs for QT prolongation. Continue monitoring on telemetry. Solange Carvajal MD Aug 12, 2016 17:57
--- NOTE | 2016-08-12 19:01 | EC ---
Study Study Date:08/12/2016 STUDY CONCLUSIONS SUMMARY - Left ventricle: The cavity size was at the upper limits of normal. Wall thickness was normal. Systolic function was normal. The estimated ejection fraction was 55%. Wall motion was normal; there were no regional wall motion abnormalities. - Pulmonary arteries: Systolic pressure was mildly increased. PA peak pressure: 47mm Hg (S). If LV function is below 40, please consider prescribing an ACEI or ARB or document rationale for non-use. PROCEDURE DATA STUDY STATUS: Elective. Procedure: Transthoracic echocardiography. Image quality was good. Scanning was performed from the parasternal, apical, and subcostal acoustic windows. Study completion: The patient tolerated the procedure well. Transthoracic echocardiography. M-mode, complete 2D, complete spectral Doppler, and color Doppler. Height: Height: 68in. Weight: Weight: 307.4lb. Body mass index: BMI: 46.8kg/m^2. Body surface area: BSA: 2.46m^2. Patient status: Inpatient. CARDIAC ANATOMY LEFT VENTRICLE: The cavity size was at the upper limits of normal. Wall thickness was normal. Systolic function was normal. The estimated ejection fraction was 55%. Wall motion was normal; there were no regional wall motion abnormalities. AORTIC VALVE: Trileaflet; normal thickness leaflets. Doppler: Transvalvular velocity was within the normal range. There was no stenosis. No regurgitation. Valve area: 2.35cm^2(VTI). Indexed valve area: 0.96cm^2/m^2 (VTI). Valve area: 2.26cm^2 (Vmax). Indexed valve area: 0.92cm^2/m^2 (Vmax). Mean gradient: 4mm Hg (S). AORTA: Aortic root: The aortic root was normal in size. MITRAL VALVE: Structurally normal valve. Doppler: Transvalvular velocity was within the normal range. There was no evidence for stenosis. Trace regurgitation. Peak gradient: 6mm Hg (D). LEFT ATRIUM: The atrium was normal in size. RIGHT VENTRICLE: The cavity size was normal. Wall thickness was normal. PULMONIC VALVE: Doppler: Transvalvular velocity was within the normal range. There was no evidence for stenosis. No regurgitation. TRICUSPID VALVE: Structurally normal valve. Doppler: Transvalvular velocity was within the normal range. Trace regurgitation. PULMONARY ARTERY: The main pulmonary artery was normal-sized. Systolic pressure was mildly increased. RIGHT ATRIUM: The atrium was normal in size. PERICARDIUM: There was no pericardial effusion. SYSTEMIC VEINS: Inferior vena cava: The vessel was normal in size. Patient weight: 307.4lb _Ejection fraction:_ 65-75% _Fractional shortening:_ 32% up to 5Kg 5-11.5Kg 11.6-22.9Kg 23-45Kg 45-57Kg Aortic Root 7-13 <17 13-22 17-27 17-27 LA diam 6-13 <23 24-38 33-47 37-40 RVID 10-17 7-15 7-15 7-18 8-17 LVIDd 12-22 <32 24-38 33-47 37-40 LVPW 2-4 3-6 5-7 6-8 7-8 IVS 2-4 3-6 5-7 6-8 7-8 BASIC MEASUREMENTS ADULT NORMAL Left ventricle LV internal dimension, ED, chordal *56.9 mm 43-52 level, PLAX LV internal dimension, ES, chordal *44.6 mm 23-38 level, PLAX Fractional shortening, chordal level, *22 % >29 PLAX LV posterior wall thickness, ED 8.79 mm IVS/LVPW ratio, ED 1.01 <1.3 Ventricular septum Septal thickness, ED 8.89 mm Aortic valve Leaflet separation 21 mm 15-26 Aorta Root diameter, ED 29 mm Left atrium Anterior-posterior dimension 44 mm Anterior-posterior dimension index 1.79 cm/m^2 <2.2 BASIC MEASUREMENTS ADULT NORMAL Aortic valve Leaflet separation 21 mm 15-26 DOPPLER MEASUREMENTS ADULT NORMAL Main pulmonary artery Pressure, S *47 mm Hg =30 Aortic valve Peak velocity, S 150 cm/s Mean velocity, S 92 cm/s VTI, S 25.1 cm Mean gradient, S 4 mm Hg Valve area, VTI 2.35 cm^2 Valve area index, VTI 0.96 cm^2/m^2 Valve area, Vmax 2.26 cm^2 Valve area index, Vmax 0.92 cm^2/m^2 Mitral valve Peak E-wave velocity 122 cm/s Peak A-wave velocity 77.1 cm/s Deceleration time 208 ms 150-230 Peak gradient, D 6 mm Hg Peak E/A ratio 1.6 Tricuspid valve Regurgitant peak velocity 312 cm/s Peak RV-RA gradient, S 39 mm Hg Maximal regurgitant velocity 312 cm/s Systemic veins Estimated CVP 10 mm Hg Right ventricle RV pressure, S *49 mm Hg <30 Pulmonic valve Peak velocity, S 70.7 cm/s LEGEND: Mean values are shown as u=mean value. Asterisk (*) bush values outside specified normal range. Prepared and signed by Solange Carvajal [id number]
--- NOTE | 2016-08-12 19:31 | HHI.PR ---
Subjective Remarks No further AICD discharges. Interrogation showed A. fib with rate of 160. Patient not sure why he has an AICD. Patient states he had head trauma as a child and has short term memory loss. Patient denies chest pain or any recent history of chest pain. He states his been years since his last stress test. Normal sinus rhythm on telemetry. Objective Vitals Vital Signs Date Time Temp Pulse Resp B/P Pulse Ox O2 Delivery O2 Flow Rate FiO2 08/12/16 08:05 95 Nasal Cannula 2.00 08/12/16 08:00 97.9 78 19 123/76 95 08/12/16 06:00 75 15 122/63 94 08/12/16 06:00 75 08/12/16 05:00 77 18 121/68 94 08/12/16 04:00 79 08/12/16 04:00 98.5 79 18 119/67 94 08/12/16 03:00 77 18 119/66 94 08/12/16 02:00 88 38 139/76 94 08/12/16 02:00 88 08/12/16 01:00 79 24 109/63 95 08/12/16 00:00 82 08/12/16 00:00 98.3 82 25 109/60 96 08/12/16 00:00 82 08/11/16 22:31 98 18 144/74 98 Nasal Cannula 2 08/11/16 21:18 103 18 142/66 99 Nasal Cannula 2 08/11/16 20:39 103 18 157/70 97 Nasal Cannula 2 08/11/16 20:11 18 97 Nasal Cannula 08/11/16 20:00 115 18 Nasal Cannula 3 08/11/16 19:52 98.0 112 18 166/81 96 I/O 08/11/16 08/11/16 08/11/16 08/12/16 08/12/16 08/12/16 07:00 15:00 23:00 07:00 15:00 23:00 Intake Total 2828 ml Output Total 390 ml Balance 2438 ml Intake Oral 1440 ml IV Total 1388 ml Output Urine Total 390 ml Stool Total 0 ml Result Diagram: 08/12/1631208/12/16312 Objective Remarks GENERAL: Well-nourished, well-developed patient. SKIN: Warm and dry. HEAD: Normocephalic. EYES: No scleral icterus. No injection or drainage. NECK: Supple, trachea midline. No JVD or lymphadenopathy. CARDIOVASCULAR: Regular rate and rhythm without murmurs, gallops, or rubs. RESPIRATORY: Breath sounds equal bilaterally. No accessory muscle use. GASTROINTESTINAL: Abdomen soft, non-tender, nondistended. EXTREMITIES: 1+ pedal edema. NEUROLOGICAL: Awake, alert, and oriented x 3. Non-focal. A/P Assessment and Plan -AICD discharge, interrogation showed rapid A. fib - being started on sotalol by cardiology, needs 2-3 days in hospital for this. Patient has converted back into normal sinus rhythm. Per cardiology, magnet when necessary if he goes back into A. fib to prevent further unwarranted shocks. He has a single lead pacemaker which detects only rate and is unable to differentiate between supraventricular tachyarrhythmias and ventricular arrhythmias. Discussed with Dr. luz and ICU nurse at bedside. -A. fib with RVR, now converted into normal sinus rhythm status post Cardizem drip. Sotalol as per cardiology. Atenolol dose decreased. Monitor for any bradycardia. Anticoagulation with Coumadin. Echocardiogram pending. -Elevated troponin. Could have been secondary to the AICD discharge. Patient has no chest pain or angina equivalence. Echocardiogram pending. Consider stress test per cardiology. -Pedal edema. Continue Lasix and potassium. -Hypertension. Currently normotensive. -Diabetes. Continue sliding scale insulin. 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 Patient states he is somewhat mentally slow. Not aware of much of his medical history, better contact is patient's . -DVT prophylaxis on Coumadin. Likely transfer to [facility] tomorrow. Gracie Solomon MD Aug 12, 2016 19:31
[2016-08-12] MEDS: WARFARIN SOD 5 MG TAB PO SCH (20:01)
[2016-08-12] MEDS: ATORVASTATIN 40 MG TAB PO SCH (21:17)
[2016-08-12] MEDS: SOTALOL HCL 80 MG TAB PO SCH (21:18)
[2016-08-13] VITALS (13 sets, daily range): BP systolic 123–142; BP diastolic 70–82; PULSE 63–75; RESP 15–24; TEMP 98–98.4; O2SAT 90–97
[2016-08-13] MEDS: CHLORHEXIDINE GLUCONATE 2 % 1 PACK (2 CLOTHS) TOP SCH (04:00)
[2016-08-13] MEDS: INSULIN ASPART SUPPLEMENTAL SCALE SQ SCH ×4 (07:00→21:00)
[2016-08-13] MEDS: SODIUM CHLORIDE 0.9% FLUSH 10 ML FLUSH SCH ×2 (08:34→21:00)
[2016-08-13] MEDS: POTASSIUM CHLORIDE 10 MEQ CONTROLLED RELEASE TAB PO SCH (08:35)
[2016-08-13] MEDS: ESCITALOPRAM OXALATE 10 MG TAB PO SCH (08:35)
[2016-08-13] MEDS: DOCUSATE SODIUM 100 MG CAP PO SCH ×2 (08:35→21:00)
[2016-08-13] MEDS: SOTALOL HCL 80 MG TAB PO SCH ×2 (08:36→21:35)
[2016-08-13] MEDS: ATENOLOL 50 MG TAB PO SCH (08:36)
[2016-08-13] MEDS: SODIUM CHLOR 0.9% 1000 ML INJ 1,000 ML IV SCH (08:37)
[2016-08-13] MEDS: FUROSEMIDE 40 MG TAB PO SCH ×2 (08:38→19:32)
--- NOTE | 2016-08-13 13:53 | HHI.PR ---
Subjective Remarks Follow-up for AICD firing and proximal atrial fibrillation Objective Vitals Vital Signs Date Time Temp Pulse Resp B/P Pulse Ox O2 Delivery O2 Flow Rate FiO2 08/13/16 11:58 96 08/13/16 10:00 69 08/13/16 08:00 98.0 64 23 127/76 95 08/13/16 08:00 73 08/13/16 06:00 73 08/13/16 04:00 64 08/13/16 04:00 98.3 64 15 123/72 97 08/13/16 02:00 68 08/13/16 00:00 98.3 68 24 123/70 90 08/13/16 00:00 68 08/12/16 22:00 64 08/12/16 20:00 69 08/12/16 20:00 98.0 69 20 122/71 93 08/12/16 19:10 93 21 I/O 08/12/16 08/12/16 08/12/16 08/13/16 08/13/16 08/13/16 07:00 15:00 23:00 07:00 15:00 23:00 Intake Total 2828 ml 1601 ml 240 ml Output Total 390 ml 345 ml 150 ml Balance 2438 ml 1256 ml 90 ml Intake Oral 1440 ml 960 ml 240 ml IV Total 1388 ml 641 ml 0 ml Output Urine Total 390 ml 335 ml 150 ml Stool Total 0 ml 10 ml # Bowel Movements 0 0 Result Diagram: 08/12/1631208/12/16312 Objective Remarks GENERAL: in NAD CARDIOVASCULAR: Regular rate and rhythm without murmurs, gallops, or rubs. RESPIRATORY: Breath sounds equal bilaterally. No accessory muscle use. GASTROINTESTINAL: Abdomen soft, non-tender, nondistended. MUSCULOSKELETAL: No cyanosis, or edema. BACK: Nontender without obvious deformity. No CVA tenderness. Medications and IVs Current Medications Sodium Chloride 1,000 ml @ 100 mls/hr Q10H IV Last administered on 08/11/16 20:11; Start 08/11/16 at 20:15; Stop 08/11/16 at 22:17; Status DC Diltiazem HCl 125 mg/Sodium Chloride 125 ml @ 0 mls/hr TITRATE IV Last administered on 08/11/16 20:49; Start 08/11/16 at 20:15; Stop 08/12/16 at 17:44 ; Status DC Potassium Chloride (KCl 20 Meq Premix Inj) 100 ml @ 50 mls/hr BOLUS ONCE IV ; Start 08/11/16 at 21:30; Stop 08/11/16 at 22:17; Status DC Potassium Chloride 40 meq 40 meq ONCE ONCE PO Last administered on 08/11/16 22:40; Start 08/11/16 at 21:30; Stop 08/11/16 at 21:31; Status DC Sodium Chloride (NS 1000 ml Inj) 1,000 ml @ 84 mls/hr [id number] IV Last administered on 08/13/16 08:37; Start 08/11/16 at 22:00 Sodium Chloride (NS Flush) 2 ml UNSCH PRN .XX FLUSH AFTER USING IV ACCESS; Start 08/11/16 at 22:00 Sodium Chloride (NS Flush) 2 ml BID .XX Last administered on 08/13/16 08:34; Start 08/12/16 at 09:00 Acetaminophen (Tylenol) 650 mg Q6H PRN PO FEVER >101F; Start 08/11/16 at 22:00 Oxycodone/ Acetaminophen (Percocet 5-325 Mg) 1 tab Q4H PRN PO PAIN SCALE 1 TO 5; Start 08/11/16 at 22:00 Morphine Sulfate (Morphine Inj) 2 mg Q2H PRN IV SEE LABEL COMMENTS; Start 08/11 at 22:00 Docusate Sodium (Colace) 100 mg BID PO Last administered on 08/13/16 08:35; Start 08/12/16 at 09:00 Zolpidem Tartrate (Ambien) 5 mg HS PRN PO INSOMNIA; Start 08/11/16 at 22:00 Albuterol/ Ipratropium (Duoneb Neb) 1 ampule Q2HR NEB PRN INH WHEEZING; Start 08/11/16 at 22:00 Heparin Sodium (Porcine) (Heparin Inj) 5,000 units Q8H SQ ; Start 08/11/16 at 22 :00; Stop 08/11/16 at 22:18; Status DC Miscellaneous Information 1 Q361D XX ; Start 08/11/16 at 22:00 Chlorhexidine Gluconate (Chlorhexidine 2% Cloth) 3 pack Taper DAILY@04 TOP Last administered on 08/13/16 04:00; Start 08/12/16 at 04:00; Stop 08/08/17 at 03:59 Chlorhexidine Gluconate (Chlorhexidine 2% Cloth) 3 pack UNSCH PRN TOP HYGIENIC CARE; Start 08/11/16 at 22:00 Atenolol (Tenormin) 100 mg DAILY PO Last administered on 08/12/16 09:25; Start 08/12/16 at 09:00; Stop 08/12/16 at 17:44; Status DC Atorvastatin Calcium (Lipitor) 40 mg HS PO Last administered on 08/12/16 21:17 ; Start 08/12/16 at 21:00 Escitalopram Oxalate (Lexapro) 10 mg DAILY PO Last administered on 08/13/16 08 :35; Start 08/12/16 at 09:00 Furosemide (Lasix) 40 mg BID@09,18 PO Last administered on 08/13/16 08:38; Start 08/12/16 at 09:00 Potassium Chloride (KCl) 10 meq DAILY PO Last administered on 08/13/16 08:35; Start 08/12/16 at 09:00 Warfarin Sodium (Coumadin) 5 mg DAILY@16 PO Last administered on 08/12/16 20: 01; Start 08/12/16 at 16:00 Dextrose (D50w (Vial) Inj) 25 ml UNSCH PRN IV PUSH HYPOGLYCEMIA-SEE COMMENTS; Start 08/11/16 at 22:45 Glucagon (Glucagon Inj) 1 mg UNSCH PRN OTHER HYPOGLYCEMIA-SEE COMMENTS; Start 08/11/16 at 22:45 Insulin Aspart 1 1 ACHS SLIDING SCALE SQ Last administered on 08/12/16 18:45 ; Start 08/12/16 at 07:00 Potassium Chloride 100 ml @ 50 mls/hr Q2H PRN IV For Potassium 2.8 - 3.2 mEq/L ; Start 08/11/16 at 22:45 Potassium Chloride 100 ml @ 50 mls/hr Q2H PRN IV For Potassium 2.8 - 3.2 mEq/L ; Start 08/11/16 at 22:45 Potassium Chloride 100 ml @ 25 mls/hr UNSCH PRN IV For Potassium 3.3 - 3.5 mEq /L; Start 08/11/16 at 22:45 Potassium Chloride 100 ml @ 50 mls/hr Q2H PRN IV For Potassium 3.3 - 3.5 mEq/L ; Start 08/11/16 at 22:45 Magnesium Sulfate/ Sodium Chloride (Magnesium Sulfate Inj/NS Inj) 100 ml @ 50 mls/hr UNSCH PRN IV For Magnesium 0.9 - 1.1 mg/dL; Start 08/11/16 at 22:45 Magnesium Oxide 800 mg 800 mg UNSCH PRN PO For Magnesium 1.2 - 1.6 mg/dL; Start 08/11/16 at 22:45 Magnesium Sulfate/ Sodium Chloride (Magnesium Sulfate Inj/NS Inj) 100 ml @ 50 mls/hr UNSCH PRN IV For Magnesium 1.2 - 1.6 mg/dL; Start 08/11/16 at 22:45 Potassium Phosphate 2000 mg 2,000 mg Q4H PRN PO For Phosphorus < 2.5 mg/dL; Start 08/11/16 at 22:45 Sodium Phosphate/ Sodium Chloride (Sodium Phosphate Inj/NS 250 ml Inj) 250 ml @ 42 mls/hr UNSCH PRN IV For Phosphorus < 2.5 mg/dL; Start 08/11/16 at 22:45 Potassium Phosphate 2000 mg 2,000 mg UNSCH PRN PO/TUBE SEE LABEL COMMENTS; Start 08/11/16 at 22:45 Potassium Phosphate/Sodium Chloride (Potassium Phosphate Inj/NS 250 ml Inj) 260 ml @ 42 mls/hr UNSCH PRN IV SEE LABEL COMMENTS; Start 08/11/16 at 22:45 Atenolol (Tenormin) 50 mg DAILY PO Last administered on 08/13/16 08:36; Start 08/13/16 at 09:00 Sotalol HCl (Betapace) 80 mg Q12HR PO Last administered on 08/13/16t 08:36; Start 08/12/16 at 21:00 A/P Assessment and Plan AICD discharge, interrogation showed rapid A. fib - started on sotalol by cardiology, needs 2-3 days in hospital for this. - Patient has converted back into normal sinus rhythm. Per cardiology, magnet when necessary if he goes back into A. fib to prevent further unwarranted shocks. He has a single lead pacemaker which detects only rate and is unable to differentiate between supraventricular tachyarrhythmias and ventricular arrhythmias. A. fib with RVR -now converted into normal sinus rhythm status post Cardizem drip. -Sotalol as per cardiology. Atenolol dose decreased. Monitor for any bradycardia. Anticoagulation with Coumadin. -ECHO shoed EF 55%. Elevated troponin -Could have been secondary to the AICD discharge. -asymptomatic. -trending down. Pedal edema. - Continue Lasix and potassium. Hypertension - Currently normotensive. Diabetes. -Continue sliding scale insulin. 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 -Patient states he is somewhat mentally slow. Not aware of much of his medical history, better contact is patient's . DVT prophylaxis on Coumadin. Discharge Planning Per ethanol operator will need to continue to monitor while on sotalol. Patient patient can be downgraded to [facility]IC. Sylvia Castillo MD Aug 13, 2016 13:53
[2016-08-13] MEDS: WARFARIN SOD 5 MG TAB PO SCH (16:15)
[2016-08-13] MEDS ORDERED: PILL SPLITTER OTHER PRN (20:00)
--- NOTE | 2016-08-13 20:57 | PD.CARD.PN ---
Subjective Subjective Remarks No CP or SOB, no arrhythmias Objective Medications Current Medications Medications (Trade) Dose Ordered Sig/Maggy Route Start Time Stop Time Status Last Admin (NS Flush) 2 ml UNSCH PRN .XX 08/11/16 22:00 (NS Flush) 2 ml BID .XX 08/12/16 09:00 08/13/16 08:34 (Tylenol) 650 mg Q6H PRN PO 08/11/16 22:00 (Percocet 5-325 Mg) 1 tab Q4H PRN PO 08/11/16 22:00 (Morphine Inj) 2 mg Q2H PRN IV 08/11/16 22:00 (Colace) 100 mg BID PO 08/12/16 09:00 08/13/16 08:35 (Ambien) 5 mg HS PRN PO 08/11/16 22:00 Miscellaneous Information 1 Q361D XX 08/11/16 22:00 (Chlorhexidine 2% Cloth) 3 pack Taper DAILY@04 TOP 08/12/16 04:00 08/08/17 03:59 08/13/16 04:00 (Chlorhexidine 2% Cloth) 3 pack UNSCH PRN TOP 08/11/16 22:00 (Lipitor) 40 mg HS PO 08/12/16 21:00 08/12/16 21:17 (Lexapro) 10 mg DAILY PO 08/12/16 09:00 08/13/16 08:35 (Lasix) 40 mg BID@09,18 PO 08/12/16 09:00 08/13/16 19:32 (KCl) 10 meq DAILY PO 08/12/16 09:00 08/13/16 08:35 (Coumadin) 5 mg DAILY@16 PO 08/12/16 16:00 08/13/16 16:15 (D50w (Vial) Inj) 25 ml UNSCH PRN IV PUSH 08/11/16 22:45 Glucagon 1 mg 1 mg UNSCH PRN OTHER 08/11/16 22:45 Potassium Chloride 100 ml @ 50 mls/hr Q2H PRN IV 08/11/16 22:45 Potassium Chloride 100 ml @ 50 mls/hr Q2H PRN IV 08/11/16 22:45 Potassium Chloride 100 ml @ 25 mls/hr UNSCH PRN IV 08/11/16 22:45 Potassium Chloride 100 ml @ 50 mls/hr Q2H PRN IV 08/11/16 22:45 (Magnesium Sulfate Inj/NS Inj) 100 ml @ 50 mls/hr UNSCH PRN IV 08/11/16 22:45 Magnesium Oxide 800 mg 800 mg UNSCH PRN PO 08/11/16 22:45 (Magnesium Sulfate Inj/NS Inj) 100 ml @ 50 mls/hr UNSCH PRN IV 08/11/16 22:45 Potassium Phosphate 2000 mg 2,000 mg Q4H PRN PO 08/11/16 22:45 (Sodium Phosphate Inj/NS 250 ml Inj) 250 ml @ 42 mls/hr UNSCH PRN IV 08/11/16 22:45 Potassium Phosphate 2000 mg 2,000 mg UNSCH PRN PO/TUBE 08/11/16 22:45 (Potassium Phosphate Inj/NS 250 ml Inj) 260 ml @ 42 mls/hr UNSCH PRN IV 08/11/16 22:45 (Tenormin) 50 mg DAILY PO 08/13/16 09:00 08/13/16 08:36 (Betapace) 120 mg Q12HR PO 08/13/16 21:00 (Pill Splitter) 1 ea UNSCH PRN OTHER 08/13/16 20:00 Vital Signs / I&O Vital Signs Date Time Temp Pulse Resp B/P Pulse Ox O2 Delivery O2 Flow Rate FiO2 08/13/16 18:00 72 08/13/16 16:00 63 08/13/16 16:00 98.0 72 22 131/81 93 08/13/16 14:00 68 08/13/16 12:00 69 08/13/16 11:58 96 08/13/16 10:00 69 08/13/16 08:00 98.0 64 23 127/76 95 08/13/16 08:00 73 08/13/16 06:00 73 08/13/16 04:00 64 08/13/16 04:00 98.3 64 15 123/72 97 08/13/16 02:00 68 08/13/16 00:00 98.3 68 24 123/70 90 08/13/16 00:00 68 08/12/16 22:00 64 I/O 08/12/16 08/12/16 08/12/16 08/13/16 08/13/16 08/13/16 07:00 15:00 23:00 07:00 15:00 23:00 Intake Total 2828 ml 1601 ml 240 ml 1050 ml Output Total 390 ml 345 ml 150 ml 800 ml Balance 2438 ml 1256 ml 90 ml 250 ml Intake Oral 1440 ml 960 ml 240 ml 400 ml IV Total 1388 ml 641 ml 0 ml 650 ml Output Urine Total 390 ml 335 ml 150 ml 800 ml Stool Total 0 ml 10 ml # Voids 6 # Bowel Movements 0 0 2 Physical Exam GENERAL: In NAD SKIN: Warm and dry. HEAD: Normocephalic. EYES: No scleral icterus. No injection or drainage. NECK: Supple, trachea midline. No JVD or lymphadenopathy. CARDIOVASCULAR: Regular rate and rhythm without murmurs, gallops, or rubs. RESPIRATORY: Breath sounds equal bilaterally. No accessory muscle use. GASTROINTESTINAL: Abdomen soft, non-tender, nondistended. MUSCULOSKELETAL: No cyanosis, or edema. ICD site stable Laboratory Laboratory Tests Test 08/11/16 08/11/16 08/12/16 08/12/16 20:00 23:00 03:13 08:12 Activated Partial 37.1 SEC Thromboplast Time Total Creatine Kinase 173 U/L B-Type Natriuretic Peptide 23 PG/ML Thyroid Stimulating Hormone 1.560 uIU/ML 3rd Gen Nasal Screen MRSA (PCR) NEGATIVE White Blood Count 8.0 TH/MM3 Red Blood Count 4.32 MIL/MM3 Hemoglobin 12.6 GM/DL Hematocrit 37.9 % Mean Corpuscular Volume 87.8 FL Mean Corpuscular Hemoglobin 29.2 PG Mean Corpuscular Hemoglobin 33.2 % Concent Red Cell Distribution Width 14.8 % Platelet Count 212 TH/MM3 Mean Platelet Volume 8.9 FL Neutrophils (%) (Auto) 64.9 % Lymphocytes (%) (Auto) 25.4 % Monocytes (%) (Auto) 7.4 % Eosinophils (%) (Auto) 1.8 % Basophils (%) (Auto) 0.5 % Neutrophils # (Auto) 5.2 TH/MM3 Lymphocytes # (Auto) 2.0 TH/MM3 Monocytes # (Auto) 0.6 TH/MM3 Eosinophils # (Auto) 0.1 TH/MM3 Basophils # (Auto) 0.0 TH/MM3 CBC Comment DIFF FINAL Differential Comment Prothrombin Time 26.8 SEC Prothromb Time International 2.3 RATIO Ratio Sodium Level 141 MEQ/L Potassium Level 3.8 MEQ/L Chloride Level 105 MEQ/L Carbon Dioxide Level 27.4 MEQ/L Anion Gap 9 MEQ/L Blood Urea Nitrogen 11 MG/DL Creatinine 0.89 MG/DL Estimat Glomerular Filtration 87 ML/MIN Rate Random Glucose 170 MG/DL Calcium Level 8.7 MG/DL Magnesium Level 1.8 MG/DL Total Bilirubin 0.5 MG/DL Aspartate Amino Transf 50 U/L (AST/SGOT) Alanine Aminotransferase 54 U/L (ALT/SGPT) Alkaline Phosphatase 72 U/L Total Protein 7.4 GM/DL Albumin 3.1 GM/DL Phosphorus Level 2.4 MG/DL Troponin I 1.70 NG/ML Imaging Last Impressions Chest X-Ray 08/11/162000 Signed Impressions: Service Date/Time: Saturday, August 11, 2016 20:19 - CONCLUSION: 1. Minimal basal atelectasis. No focal consolidation or effusion. No pneumothorax. Brandon Matias MD Assessment and Plan Problem List: (1) AICD discharge (2) Atrial fibrillation with RVR (3) Elevated troponin Assessment and Plan Tolerating sotalol, increase dose. No recurrent AF. ICD (BSci) eval showed a fib only, no V arrhythmias. Back in SR. No angina or CHF symptoms. Troponin mildly elevated. Echo w nl LV systolic fx. Monitor EKGs for QT prolongation. Continue monitoring, OK to transfer to [facility]. Solange Carvajal MD Aug 13, 2016 20:57
[2016-08-13] MEDS: ATORVASTATIN 40 MG TAB PO SCH (21:31)
[2016-08-14] VITALS (10 sets, daily range): BP systolic 121–151; BP diastolic 69–77; PULSE 63–72; RESP 15–26; TEMP 98–98.3; O2SAT 91–94
[2016-08-14] MEDS: CHLORHEXIDINE GLUCONATE 2 % 1 PACK (2 CLOTHS) TOP SCH (04:00)
[2016-08-14 06:04] LABS: BICARBONATE 27.2 MEQ/L (21.0-32.0); MAGNESIUM 2.1 MG/DL (1.5-2.5); POTASSIUM 3.6 MEQ/L (3.5-5.1)
[2016-08-14] MEDS: FUROSEMIDE 40 MG TAB PO SCH (08:42)
[2016-08-14] MEDS: ESCITALOPRAM OXALATE 10 MG TAB PO SCH (08:42)
[2016-08-14] MEDS: DOCUSATE SODIUM 100 MG CAP PO SCH (08:42)
[2016-08-14] MEDS: POTASSIUM CHLORIDE 10 MEQ CONTROLLED RELEASE TAB PO SCH (08:42)
[2016-08-14] MEDS: ATENOLOL 50 MG TAB PO SCH (08:42)
[2016-08-14] MEDS: SOTALOL HCL 80 MG TAB PO SCH (08:43)
[2016-08-14] MEDS: SODIUM CHLORIDE 0.9% FLUSH 10 ML FLUSH SCH (08:43)
[2016-08-14] MEDS: INSULIN ASPART SUPPLEMENTAL SCALE SQ SCH ×2 (11:00→16:00)
--- NOTE | 2016-08-14 15:08 | PD.CARD.PN ---
Subjective Subjective Remarks No CP or SOB, no arrhythmias Objective Medications Current Medications Medications (Trade) Dose Ordered Sig/Maggy Route Start Time Stop Time Status Last Admin (NS Flush) 2 ml UNSCH PRN .XX 08/11/16 22:00 (NS Flush) 2 ml BID .XX 08/12/16 09:00 08/14/16 08:43 (Tylenol) 650 mg Q6H PRN PO 08/11/16 22:00 (Percocet 5-325 Mg) 1 tab Q4H PRN PO 08/11/16 22:00 (Morphine Inj) 2 mg Q2H PRN IV 08/11/16 22:00 (Colace) 100 mg BID PO 08/12/16 09:00 08/14/16 08:42 (Ambien) 5 mg HS PRN PO 08/11/16 22:00 Miscellaneous Information 1 Q361D XX 08/11/16 22:00 (Chlorhexidine 2% Cloth) 3 pack Taper DAILY@04 TOP 08/12/16 04:00 08/08/17 03:59 08/14/16 04:00 (Chlorhexidine 2% Cloth) 3 pack UNSCH PRN TOP 08/11/16 22:00 (Lipitor) 40 mg HS PO 08/12/16 21:00 08/13/16 21:31 (Lexapro) 10 mg DAILY PO 08/12/16 09:00 08/14/16 08:42 (Lasix) 40 mg BID@09,18 PO 08/12/16 09:00 08/14/16 08:42 (KCl) 10 meq DAILY PO 08/12/16 09:00 08/14/16 08:42 (Coumadin) 5 mg DAILY@16 PO 08/12/16 16:00 08/13/16 16:15 (D50w (Vial) Inj) 25 ml UNSCH PRN IV PUSH 08/11/16 22:45 Glucagon 1 mg 1 mg UNSCH PRN OTHER 08/11/16 22:45 Potassium Chloride 100 ml @ 50 mls/hr Q2H PRN IV 08/11/16 22:45 Potassium Chloride 100 ml @ 50 mls/hr Q2H PRN IV 08/11/16 22:45 Potassium Chloride 100 ml @ 25 mls/hr UNSCH PRN IV 08/11/16 22:45 Potassium Chloride 100 ml @ 50 mls/hr Q2H PRN IV 08/11/16 22:45 (Magnesium Sulfate Inj/NS Inj) 100 ml @ 50 mls/hr UNSCH PRN IV 08/11/16 22:45 Magnesium Oxide 800 mg 800 mg UNSCH PRN PO 08/11/16 22:45 (Magnesium Sulfate Inj/NS Inj) 100 ml @ 50 mls/hr UNSCH PRN IV 08/11/16 22:45 Potassium Phosphate 2000 mg 2,000 mg Q4H PRN PO 08/11/16 22:45 (Sodium Phosphate Inj/NS 250 ml Inj) 250 ml @ 42 mls/hr UNSCH PRN IV 08/11/16 22:45 Potassium Phosphate 2000 mg 2,000 mg UNSCH PRN PO/TUBE 08/11/16 22:45 (Potassium Phosphate Inj/NS 250 ml Inj) 260 ml @ 42 mls/hr UNSCH PRN IV 08/11/16 22:45 (Tenormin) 50 mg DAILY PO 08/13/16 09:00 08/14/16 08:42 (Betapace) 120 mg Q12HR PO 08/13/16 21:00 08/14/16 08:43 (Pill Splitter) 1 ea UNSCH PRN OTHER 08/13/16 20:00 Vital Signs / I&O Vital Signs Date Time Temp Pulse Resp B/P Pulse Ox O2 Delivery O2 Flow Rate FiO2 08/14/16 10:00 70 08/14/16 08:00 66 08/14/16 08:00 98.3 70 15 133/77 93 08/14/16 06:00 67 08/14/16 05:00 98.1 68 17 121/69 94 08/14/16 04:00 64 08/14/16 02:00 68 08/14/16 00:00 98.0 63 26 151/74 91 08/14/16 00:00 63 08/13/16 22:00 67 08/13/16 20:00 71 08/13/16 20:00 98.4 75 21 142/82 95 08/13/16 18:00 72 08/13/16 16:00 63 08/13/16 16:00 98.0 72 22 131/81 93 I/O 08/13/16 08/13/16 08/13/16 08/14/16 08/14/16/28/17 07:00 15:00 23:00 07:00 15:00 23:00 Intake Total 240 ml 1050 ml 642 ml Output Total 150 ml 800 ml 775 ml 600 ml Balance 90 ml 250 ml -133 ml -600 ml Intake Oral 240 ml 400 ml IV Total 0 ml 650 ml 642 ml Output Urine Total 150 ml 800 ml 775 ml 600 ml # Voids 6 3 1 # Bowel Movements 0 2 Physical Exam GENERAL: In NAD SKIN: Warm and dry. HEAD: Normocephalic. EYES: No scleral icterus. No injection or drainage. NECK: Supple, trachea midline. No JVD or lymphadenopathy. CARDIOVASCULAR: Regular rate and rhythm without murmurs, gallops, or rubs. RESPIRATORY: Breath sounds equal bilaterally. No accessory muscle use. GASTROINTESTINAL: Abdomen soft, non-tender, nondistended. MUSCULOSKELETAL: No cyanosis, or edema. ICD site stable Laboratory Laboratory Tests Test 08/14/16 04:38 Sodium Level 139 MEQ/L Potassium Level 3.6 MEQ/L Chloride Level 102 MEQ/L Carbon Dioxide Level 27.2 MEQ/L Anion Gap 10 MEQ/L Blood Urea Nitrogen 11 MG/DL Creatinine 0.83 MG/DL Estimat Glomerular Filtration 94 ML/MIN Rate Random Glucose 114 MG/DL Calcium Level 9.0 MG/DL Magnesium Level 2.1 MG/DL Imaging Last Impressions Chest X-Ray 08/11/162000 Signed Impressions: Service Date/Time: Thursday, August 11, 2016 20:19 - CONCLUSION: 1. Minimal basal atelectasis. No focal consolidation or effusion. No pneumothorax. Brandon Matias MD Assessment and Plan Problem List: (1) AICD discharge (2) Atrial fibrillation with RVR (3) Elevated troponin Assessment and Plan Tolerating sotalol 120 mg BID. EKG w nl QTc. No recurrent AF. ICD (BSci) eval showed a fib only, no V arrhythmias. Stays in SR. No angina or CHF symptoms. Troponin mildly elevated. Echo w nl LV systolic fx. OK to discharge home. F/u w his safety net maker at home. Solange Carvajal MD Aug 14, 2016 15:08
[2016-08-14] MEDS ORDERED: ATEN50TA PO (16:09)
[2016-08-14] MEDS ORDERED: SOTA80 PO (16:09)
--- NOTE | 2016-08-14 16:10 | HHI.DS ---
Discharge Summary Admission Date Aug 11, 2016 at 21:29 Discharge Date: Aug 14, 2016 Admitting Diagnosis atrial fibrillation with RVR. AICD discharge. Elevated troponin. (1) Atrial fibrillation with RVR ICD Code: I48.91 Diagnosis: Principal (2) Elevated troponin ICD Code: R74.8 Diagnosis: Principal (3) AICD discharge ICD Code: Z45.02 Diagnosis: Principal (4) Hypokalemia ICD Code: E87.6 Diagnosis: Secondary (5) Anticoagulation goal of INR 2 to 3 ICD Code: Z51.81 Diagnosis: Secondary Procedures none Brief History - From Admission 61-year-old male with history of atrial fibrillation ventricular arrhythmia status post ICD placement ([place] [employer]) complains of palpitation and multiple discharges from his ICD. Patient has also history hypertension, diabetes, dyslipidemia. Patient chronically anticoagulated due to atrial fibrillation and ventricular arrhythmias. Patient states that his AICD discharged 10 times for the past 2 hours. Patient denies any chest pain or shortness of breath. Patient was given Cardizem 20 mg IV and lidocaine [address] to the ED. 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 CBC/BMP: 08/12/16 0313 08/14/16 0438 Significant Findings Laboratory Tests Test 08/11/16 08/12/16 08/12/16 08/14/16 20:00 03:13 08:12 04:38 White Blood Count 11.4 TH/MM3 (4.0-11.0) Hematocrit 38.7 % 37.9 % (39.0-51.0) (39.0-51.0) Monocytes (%) (Auto) 11.1 % (0.0-8.0) Monocytes # (Auto) 1.3 TH/MM3 (0-0.9) Prothrombin Time 30.8 SEC 26.8 SEC (9.8-11.6) (9.8-11.6) Activated Partial 37.1 SEC Thromboplast Time (24.3-30.1) Potassium Level 3.0 MEQ/L (3.5-5.1) Estimat Glomerular Filtration 66 ML/MIN (>89) 87 ML/MIN (>89) Rate Random Glucose 113 MG/DL 170 MG/DL 114 MG/DL (74-106) (74-106) (74-106) Calcium Level 8.4 MG/DL (8.5-10.1) Aspartate Amino Transf 51 U/L (15-37) 50 U/L (15-37) (AST/SGOT) Troponin I 0.31 NG/ML 2.28 NG/ML 1.70 NG/ML (0.02-0.05) (0.02-0.05) (0.02-0.05) Albumin 3.2 GM/DL 3.1 GM/DL (3.4-5.0) (3.4-5.0) Red Blood Count 4.32 MIL/MM3 (4.50-5.90) Hemoglobin 12.6 GM/DL (13.0-17.0) Phosphorus Level 2.4 MG/DL (2.5-4.9) Imaging Last Impressions Chest X-Ray 08/11/162000 Signed Impressions: Service Date/Time: Saturday, August 11, 2016 20:19 - CONCLUSION: 1. Minimal basal atelectasis. No focal consolidation or effusion. No pneumothorax. Brandon Matias MD PE at Discharge GENERAL: in NAD CARDIOVASCULAR: Regular rate and rhythm without murmurs, gallops, or rubs. RESPIRATORY: Breath sounds equal bilaterally. No accessory muscle use. GASTROINTESTINAL: Abdomen soft, non-tender, nondistended. MUSCULOSKELETAL: No cyanosis, or edema. BACK: Nontender without obvious deformity. No CVA tenderness. Pt update on day of discharge patient had no complaints. Denied any chest pain, palpitations, SOB or any firing of ICD. no events on telemetry. patient anxious to go home and asking to go home. Hospital Course AICD discharge, interrogation showed rapid A. fib - started on sotalol by cardiology and patient did well. dosage increase and he continues to do well. - Patient has converted back into normal sinus rhythm. Per cardiology, magnet when necessary if he goes back into A. fib to prevent further unwarranted shocks. He has a single lead pacemaker which detects only rate and is unable to differentiate between supraventricular tachyarrhythmias and ventricular arrhythmias. A. fib with RVR -now converted into normal sinus rhythm status post Cardizem drip. -Sotalol as per cardiology. Atenolol dose decreased. Monitor for any bradycardia. Anticoagulation with Coumadin. -ECHO shoed EF 55%. Elevated troponin -Could have been secondary to the AICD discharge. -asymptomatic. -trending down. Pedal edema. - Continue Lasix and potassium. Hypertension - Currently normotensive. Diabetes. -Continue sliding scale insulin. 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 -Patient states he is somewhat mentally slow. Not aware of much of his medical history, better contact is patient's . Pt Condition on Discharge: Stable Discharge Disposition: Discharge Home Discharge Time: <= 30 minutes Discharge Instructions DIET: Follow Instructions for: Heart Healthy Diet, Diabetic Diet Activities you can perform: Regular-No Restrictions Follow up Referrals: Cardiology - 1 Week PCP Follow-up - 1 Week New Medications: Atenolol (Atenolol) 50 Mg Tab 50 MG PO DAILY atrial fibrillation #30 Ref 0 TAB Sotalol (Sorine) 80 Mg Tab 120 MG PO Q12HR atrial fibrillation #60 Ref 0 TAB Continued Medications: Atorvastatin (Lipitor) 40 Mg Tab 40 MG PO HS Cholesterol Management #30 Ref 0 TAB Escitalopram (Lexapro) 10 Mg Tab 10 MG PO DAILY #30 Ref 0 TAB Furosemide (Lasix) 40 Mg Tab 40 MG PO BID #60 Ref 0 TAB Metformin (Metformin) 500 Mg Tab 500 MG PO BIDPC With meals Blood Sugar Management #60 Ref 0 TAB Potassium Chloride ER (Potassium Chloride ER) 10 Meq Tab 10 MEQ PO DAILY Electrolyte Replacement #30 Ref 0 TAB Warfarin (Coumadin) 5 Mg Tab 5 MG PO DAILY Blood Clot Prevention #30 Ref 0 TAB Discontinued Medications: Atenolol (Atenolol) 100 Mg Tab 100 MG PO DAILY Blood Pressure Management #30 Ref 0 TAB Sylvia Castillo MD Aug 14, 2016 16:10
--- NOTE | 2016-08-14 16:10 | HHI.DCPOC ---
Discharge Care Plan Diagnosis: (1) Elevated troponin (2) Atrial fibrillation with RVR (3) AICD discharge (4) Anticoagulation goal of INR 2 to 3 Goals to Promote Your Health * To prevent worsening of your condition and complications * To maintain your health at the optimal level Directions to Meet Your Goals Take your medications as prescribed Follow your dietary instruction Follow activity as directed Keep your appointments as scheduled Take your immunizations and boosters as scheduled If your symptoms worsen call your PCP, if no PCP go to Urgent Care Center or Emergency Room Smoking is Dangerous to Your Health. Avoid second hand smoke Call the 24-hour hour crisis hotline for domestic abuse at Sylvia Castillo MD Aug 14, 2016 16:10
[2016-08-14] MEDS: WARFARIN SOD 5 MG TAB PO SCH (16:23)
--- NOTE | 2016-08-15 07:41 | EKG ---
Date Performed: 08/14/2016 Time Performed: 10:50:23 PTAGE: 61 years EKG: SUPRAVENTRICULAR RHYTHM LOW QRS VOLTAGE IN PRECORDIAL LEADS BORDERLINE ECG Compared to PREVIOUS TRACING , the sinus tachycardia and the diffuse nonspecific ST segment changes h ave resolved. PREVIOUS TRACIN08/11/2016 19.57 DOCTOR: Shirin Elizabeth Interpretating Date/Time 08/15/2016 07:39:39
== END 2016-08-14 17:25 | disposition home or self-care (01) | DRG 310 ==
LOC: NEPC 19:51 → NEDA 21:29 → HIMW 23:40
PROVIDERS: ADMIT Family Medicine; ATTEND Family Medicine
PROC: 4B02XTZ Measurement of Cardiac Defibrillator, External Approach (ICD-10-PCS; principal; 2016-08-11)
DX: I48.91 Unspecified atrial fibrillation (principal); I47.2 Ventricular tachycardia; Z79.01 Long term (current) use of anticoagulants; I10 Essential (primary) hypertension; Z95.810 Presence of automatic (implantable) cardiac defibrillator; E11.9 Type 2 diabetes mellitus without complications; Z79.84 Long term (current) use of oral hypoglycemic drugs; E87.6 Hypokalemia; R74.8 Abnormal levels of other serum enzymes; E78.5 Hyperlipidemia, unspecified; R60.0 Localized edema; R41.3 Other amnesia; Z87.828 Personal history of other (healed) physical injury and trauma
CPT/HCPCS: 71010; 80048; 80053; 82550; 82948; 83735; 83880; 84100; 84443; 84484; 85025; 85610; 85730; 87641; 93005; 93306; 96361; 96365; J1815; J7030